=== PATIENT | male | born 1995 | race Two or more races ===

== ENCOUNTER 2021-02-06 02:24 | Emergency (ER) | payer SELFPAY ==
[2021-02-06] MEDS ORDERED: SUCCINYLCHOLINE CHLORIDE 20 MG/ML 10ML VIAL IV ONE ×2 (02:29→02:45)
[2021-02-06] MEDS ORDERED: ETOMIDATE (2MG/ML) 20ML VIAL IV ONE (02:45)
[2021-02-06] MEDS ORDERED: PROPOFOL 100 ML IV SCH (02:45)
[2021-02-06 02:49] LABS: Basophils # (auto) 0.1 10 ^3/uL (0-0.2); Basophils % (auto) 0.4 % (0.0-2.0); Eosinophils # (auto) 0.2 10 ^3/uL (0-0.8); Eosinophils % (auto) 0.9 % (0.0-7.0); Hemoglobin 16.1 g/dL (13.5-17.5); Lymphocytes # (auto) 10.6 10 ^3/uL (0.4-5.4); Lymphocytes % (auto) 44.1 % (10.0-50.0); Mean Corpuscular Hemoglobin 31.7 pg (28.0-32.0); Mean Corpuscular Volume 96.1 fL (80.0-100.0); Monocytes % (auto) 8.4 % (0.0-12.0); Neutrophils # (auto) 11.1 10 ^3/uL (1.6-8.6); Neutrophils % (auto) 46.2 % (37.0-80.0); Nucleated Red Blood Cells % 0.2 %; Platelet Count (auto) 287 10^3/uL (140-450); Red Cell Distribution Width 14.9 % (11.8-14.3)
[2021-02-06] MEDS ORDERED: LORazepam 2MG/ML-1ML VIAL ONE (02:56)
[2021-02-06] MEDS ORDERED: LORazepam 2MG/ML-1ML VIAL IV ONE (03:00)
[2021-02-06] MEDS ORDERED: SODIUM CHL 3% 500 ML IV ONE (03:00)
[2021-02-06] MEDS ORDERED: fentaNYL Drip 2500mCg/250mlNS 250 ML IV SCH (03:00)
[2021-02-06] MEDS ORDERED: levETIRAcetam 500 MG/5ML INJ IV ONE (03:01)
[2021-02-06 03:04] LABS: INR 1.03 (0.9-1.15)
[2021-02-06 03:07] LABS: Albumin 4.3 g/dL (3.4-5.0); Calcium 8.6 mg/dL (8.5-10.1); Magnesium 2.4 mg/dL (1.6-2.6); Potassium 4.5 mmol/L (3.5-5.1)
[2021-02-06 03:09] LABS: BUN/Creatinine Ratio 12.7
[2021-02-06 03:11] LABS: Salicylate < 1.7 mg/dL (2.8-20.0)
[2021-02-06 03:14] LABS: Bilirubin, Total 0.3 mg/dL (0.2-1.0)
[2021-02-06 03:19] LABS: Acetaminophen < 2.0 ug/mL (10-30)
[2021-02-06 03:20] VITALS: BP 122/99
[2021-02-06 03:37] LABS: Lactic Acid w/Reflex 6.5 mmol/L (0.4-2.0)
[2021-02-06 04:22] LABS: Urine Bacteria NONE SEEN /hpf (None Seen); Urine Blood 3+ /uL (Negative); Urine Specific Gravity 1.013 (1.001-1.035); Urine WBC 2 /hpf (0 - 3)
[2021-02-06 04:26] LABS: Amphetamine Screen, Urine NEGATIVE (NEGATIVE); Barbiturate Scree,Urine NEGATIVE (NEGATIVE); Benzodiazephine Screen, Urine NEGATIVE (NEGATIVE); Cocaine Screen, Urine NEGATIVE (NEGATIVE); Phencyclidine Screen, Urine NEGATIVE (NEGATIVE)
[2021-02-06 04:37] LABS: Cannabinoid Screen, Urine POSITIVE (NEGATIVE); Opiate Scree,Urine NEGATIVE (NEGATIVE)
[2021-02-06 05:30] VITALS: BP 111/70
[2021-02-06] MEDS ORDERED: SODIUM CHLORIDE 0.9% 1,000 ML IV ONE (05:30)
[2021-02-06 05:44] VITALS: BP 119/72
== END 2021-02-06 06:03 | disposition home or self-care (01) ==
LOC: EDBD 02:24 → ER 02:24
DX: S06.890A Other specified intracranial injury without loss of consciousness, initial encounter (principal); G40.89 Other seizures; R46.89 Other symptoms and signs involving appearance and behavior; X58.XXXA Exposure to other specified factors, initial encounter; Y93.89 Activity, other specified; Y92.89 Other specified places as the place of occurrence of the external cause; Y99.8 Other external cause status
CPT/HCPCS: 31500; 36415; 36556; 36600; 70450; 71250; 72125; 74176; 80053; 80307; 80320; 80329; 81001; 82550; 82805; 83605; 83690; 83735; 83880; 84484; 85025; 85610; 86850; 86900; 86901; 87070; 87077; 87186; 87205; 93005; 96361; 96365; 99291; J0330; J1953; J2060; J2704; J7060; 94002; 96375